=== PATIENT | female | born 1975 | race African-American/Black ===

== ENCOUNTER 2016-10-20 23:54 | Emergency (ER) | payer OTHER ==
[2016-10-21 00:09] VITALS: BP 126/75
[2016-10-21] MEDS ORDERED: MOTRIN PO ONE (00:12)
--- NOTE | 2016-10-21 00:36 | PROVIDER DOCUMENTATION ---
HPI-General Adult - General Chief Complaint: Flu Symptoms Stated Complaint: COUGH SX Time Seen by Provider: 10/21/16 00:34 Source: patient Allergies/Adverse Reactions: Patient Allergies Allergy/AdvReac Type Severity Reaction Status Date / Time No Known Allergies Allergy Verified 10/21/16 00:09 Home Medications: No Home Medications 10/21/16 - History of Present Illness -Gen Adult Nature of Presenting Problems: 41 year old F presents to the ED with a cc of body aches, nausea, vomiting, cough, and fever with an onset of yesterday. Pt states that she was exposed to her grandson who she believes he had the flu. Location of Pain/Injury: reports: generalized Pain Radiation: reports: no radiation Quality of Pain: reports: aching Severity: reports: mild Onset/Duration: reports: 24 hours ago Timing: reports: still present Context/Activities at Onset: reports: none Modifying Factors: improves with: nothing Associated Symptoms: reports: cough, fever/chills, muscle aches, nausea, vomiting Similar Symptoms Previously?: No Recently seen or treated by another doctor?: No Review of Systems - Adult - REVIEW OF SYSTEMS - ADULT Constitutional: reports: fever. denies: chills Eyes: reports: no symptoms reported Ears, Nose, Mouth & Throat: reports: no symptoms reported Cardiovascular: reports: no symptoms reported Respiratory: reports: cough. denies: shortness of breath Gastrointestinal: reports: nausea, vomiting Genitourinary: reports: no symptoms reported Musculoskeletal: reports: muscle aches. denies: muscle weakness Integumentary: denies: skin sores/ulcer, skin thickening Neurological: reports: no symptoms reported Psychiatric: reports: no symptoms reported Endocrine: reports: no symptoms reported Hematologic/Lymphatic: reports: no symptoms reported Allergic/Immunologic: reports: no symptoms reported All Other Systems: Reviewed and Negative Past History - Adult - PAST MEDICAL HISTORY-ADULT Review of Records: reports: Nursing Assessment Review, Medications Reviewed Major Childhood Illnesses: reports: denies history Psychiatric: reports: bipolar, depression - PRIOR SURGERIES/PROCEDURES Surgical/Procedure History: reports: BTL, other (nasal) - PRIOR HOSPITALIZATIONS Prior Hospitalizations: reports: none - IMMUNIZATION STATUS Childhood Immunizations: See Nurse Assessment Flu Vaccine: See Nurse Assessment - FAMILY HISTORY Family History: reviewed, not pertinent - SOCIAL HISTORY Smoking: cigarettes, less than 1 pack/day Provider spent 3-5 mins advising pt. on dangers of tobacco.: Discussed manners to quit use, and f/u contacts for add'l counseling. Substance Use: none/never Alcohol Use Frequency: occasionally Physical Exam-General - PHYSICAL EXAM-ADULT Initial Vital Signs Reviewed: Yes - CONSTITUTIONAL General Appearance: appears well, alert, no apparent distress - RESPIRATORY Respiratory: chest non-tender, lungs clear, normal breath sounds - CARDIOVASCULAR Cardiovascular: normal peripheral pulses, regular rate, rhythm, no edema - GASTROINTESTINAL (ABDOMEN) Abdominal Exam: normal bowel sounds, non tender, soft - MUSCULOSKELETAL Extremity: normal inspection - SKIN Integumentary: normal color, normal turgor, warm/dry - PSYCHIATRIC Psych/Mental Status: normal mood/affect, normal thought content, normal thought process, oriented x 3 Progress - PLAN OF CARE/RESULTS Progress/Plan/Lab Results: plan of care: imaging, labs, medications Orders Category Date Time Status CHEST-2 VIEWS [RAD] Stat Exams 10/21/16 00:56 Taken CBC WITH DIFF [HEME] Stat Lab 10/21/16 01:[address] Stat Lab 10/21/16 00:10 Completed Acetaminophen [Tylenol] Med 10/21/16 01:02 Discontinued 1,000 mg PO NOW ONE Ibuprofen [Motrin] Med 10/21/16 00:12 Discontinued 800 mg PO NOW ONE Laboratory Tests 10/21/16 10/21/16 00:10 01:04 WBC 8.12 RBC 4.46 Hgb 11.5 L Hct 35.1 L MCV 78.7 L MCH 25.8 L MCHC 32.8 L RDW Std Deviation 13.6 Plt Count 270 MPV 9.5 Immature Gran % (Auto) 0.2 Neut % (Auto) 77.1 H Lymph % (Auto) 11.8 L [place] % (Auto) 10.8 H Eos % (Auto) 0.0 Baso % (Auto) 0.1 Immature Gran # (Auto) 0.02 Neut # 6.25 Lymph # 0.96 L [place] # 0.88 H Eos # 0.00 Baso # 0.01 Influenza A (Rapid) NEGATIVE Influenza B (Rapid) NEGATIVE Vital Signs - 24 hr 10/21/16 10/21/16 00:05 00:59 Temperature 103 F H 102.7 F H Pulse Rate 107 H Respiratory 16 Rate Blood Pressure 126/75 O2 Sat by Pulse 97 Oximetry Pt given results and will be d/c home w/ rx to follow up with PCP. Pt verbally understood instructions. PT remained clinically stable throughout the course of the ED stay and will return if symptoms worsen. - XRAY 1 XRAY Study: Chest Impression: Normal XRAY Interpretation: NAD: Dr. Morales Departure - Departure Time of Disposition Order: 01:37 DIAGNOSIS: Flu-like symptoms Disposition: HOME 01 Certified Medical Emergency: Emergent Condition: Good Additional Instructions: Follow up with primary care doctor. Return to ED for any new or worsening symptoms. ED Follow Up Instructions: You have been treated by a care provider in the Emergency Department. These instructions are being provided to you so you can have an understanding of how to care for yourself upon discharge. Upon discharge from the Emergency Department, you are responsible for making arrangements for follow-up care by a physician of your choice. Take all prescribed medications as directed. Return to the Emergency Department immediately for any new or worsening symptoms. You may call the Physician Referral phone number at [phone] to obtain a list of Physicians who are taking new patients. Referrals: Joo Cabrera MD [Primary Care Provider] - Attestation - Scribe Verification/Attestation Scribe:: Meghan Mendoza Acting as Scribe for:: Joshua Morales Scribe documention review:: This chart was documented by a scribe and accurately reflects the service the provider performed and the decisions made by the provider. Physician Attestation - Physician Attestation I, the provider, attest to the following statement:: Joshua Morales Physician documentation Attestation:: This documentation recorded by the scribe accurately reflects the service I personally performed and the decisions made by me.
[2016-10-21] MEDS ORDERED: TYLENOL PO ONE (01:02)
[2016-10-21 01:13] LABS: MANUAL DIFF NEEDED? NO
[2016-10-21 01:15] LABS: BASO% 0.1 % (0.0-0.8); HEMATOCRIT 35.1 % (37.0-47.0); HEMOGLOBIN 11.5 g/dL (12.0-16.0); IMM GRAN# 0.02 X1000 (0.0-0.04); IMM GRAN% 0.2 % (0.0-0.5); LYMPH# 0.96 X1000 (1.2-3.4); LYMPH% 11.8 % (20.5-51.1); MCH 25.8 PG (27-31); MCHC 32.8 g/dL (33-37); MCV 78.7 FL (81-99); MONO# 0.88 X1000 (0.11-0.59); MONO% 10.8 % (1.7-9.3); MPV 9.5 FL (7.4-10.4); NEUT% 77.1 % (42.2-75.2); PLT 270 X1000 (130-400); RBC 4.46 XMIL (4.2-5.4)
[2016-10-21] MEDS ORDERED: TAMIFLU PO ONE (01:39)
[2016-10-21] MEDS ORDERED: NORCO-5 PO ONE (01:39)
[2016-10-21] MEDS ORDERED: ZITHROMAX PO ONE (01:39)
--- NOTE | 2016-10-21 08:23 | Diag Imaging Result Document ---
PROCEDURE NAME: CHEST-2 VIEWS - 10/21/2016 CHEST X-RAY 2 VIEWS, 10/21/2016: COMPARISON: 04/18/2015. FINDINGS: The lungs are normally expanded and clear. Heart size and mediastinal contours are normal. No pneumothorax or pleural effusion. IMPRESSION: Negative exam.
== END 2016-10-21 02:20 | disposition home or self-care (01) ==
LOC: P.ED 23:54
DX: J11.1 Influenza due to unidentified influenza virus with other respiratory manifestations (principal); M79.1 Myalgia; R11.2 Nausea with vomiting, unspecified; R05 Cough; R50.9 Fever, unspecified; F17.210 Nicotine dependence, cigarettes, uncomplicated; Z71.6 Tobacco abuse counseling
CPT/HCPCS: 71020; 85025; 87804; 99284